=== PATIENT | male | born 1985 | race Hispanic/Latino ===

== ENCOUNTER 2017-10-18 09:33 | Emergency (ER) | payer SELFPAY ==
[~2017-10-18] VITALS: Ht 172.7 cm; Wt 95.3 kg
[2017-10-18] MEDS ORDERED: IBUPROFEN 600 MG TAB PO STA (10:49)
--- NOTE | 2017-10-18 11:21 | Diagnostic Imaging Report ---
PROCEDURE:HAND RIGHT 2 VIEWS COMPARISON:None. INDICATIONS:RIGHT 5TH DIGIT PAIN TODAY FINDINGS:There is an acute, comminuted fracture of the distal aspect of the fifth metacarpal with probable intra-articular extension and volar angulation of the distal fracture fragment. No additional displaced fracture. Joint spaces are otherwise well-maintained. Soft tissue swelling along the medial aspect of the hand. CONCLUSION: Acute, comminuted, angulated probable intra-articular fracture of the distal aspect of the fifth metacarpal. Dictated by: Gonzalez Sanchez M.D. on 10/18/2017 at 11:30 Electronically approved by: Gonzalez Sanchez M.D. on 10/18/2017 at 11:30
[2017-10-18 12:06] VITALS: BP 153/96
== END 2017-10-18 12:24 | disposition home or self-care (01) ==
LOC: ER 09:33
DX: S62.316A Displaced fracture of base of fifth metacarpal bone, right hand, initial encounter for closed fracture (principal); W23.0XXA Caught, crushed, jammed, or pinched between moving objects, initial encounter; Y92.008 Other place in unspecified non-institutional (private) residence as the place of occurrence of the external cause
CPT/HCPCS: 99284